=== PATIENT | female | born 1985 | race Caucasian/White ===

== ENCOUNTER → 2018-02-02 09:44 | Outpatient (CLI) | payer OTHER, SELFPAY ==
[2018-02-02 12:20] LABS: Absolute Lymphocyte Count 1.54 X10^3/ul (0.83-4.51); Absolute Neutrophil Count 2.7 X10^3/uL (2.0-7.7); Basophil# 0.02 X10^3/uL; Basophil% 0.4 % (0-1); Eosinophil# 0.08 X10^3/uL; Eosinophils% 1.7 % (0-5); Hematocrit 38.1 % (37-47); Hemoglobin 12.8 g/dl (12.0-15.0); Lymphocyte # 1.54 X10^3/ul (4.0); Lymphocyte % 33.6 % (19-41); Mean Corp Hgb Conc 33.6 g/gl (32-36); Mean Corpuscular Hgb 31.1 pg (27.0-32.0); Mean Corpuscular Volume 92.5 fL (81-99); Monocyte# 0.27 X10^3/uL; Monocyte% 5.9 % (0-10); Neutrophil # 2.68 X10^3/uL (2.7-7.7); Neutrophil % 58.4 % (47-70); Platelet Count 208 K/mm3 (150-450); RBC Distribution Width CV 12.3 % (11.6-14.6); Red Blood Count 4.12 M/mm3 (4.2-5.4); White Blood Count 4.6 K/mm3 (4.4-11.0)
[2018-02-02 12:39] LABS: AST(SGOT) 16 U/L (15-37); Alanine Aminotransfer ALT/SGPT 25 U/L (13-56); Albumin, Serum 4.2 g/dL (3.2-5.0); Alkaline Phosphatase 74 U/L (45-117); Anion Gap 10 (5-15); BUN 11 mg/dL (7-18); BUN/Creat Ratio 14.4 RATIO (10-20); Calcium,Total 9.4 mg/dL (8.5-10.1); Chloride 105 mmol/L (98-107); Creatinine, Serum 0.76 mg/dL (0.55-1.02); EST Glomerular Filtration Rate 95 mL/min (>60); Est Glom Filt Rate - Afr Amer 114 mL/min (>60); Globulin 4.1 g/dL (2.2-4.2); Glucose 77 mg/dL (74-106); Potassium 3.9 mmol/L (3.5-5.1); Protein, Total 8.3 g/dL (6.4-8.2); Rheumatoid Factor < 10.0 IU/mL (<15); Sodium Level 141 mmol/L (136-145)
[2018-02-02 12:42] LABS: POSITIVE COUNT NO; POSITIVE DIFFERENTIAL NO; POSITIVE MORPHOLOGY NO
[2018-02-04 10:00] LABS: CCP IgG Antibodies 5 units (0-19); HEPATITIS B SURFACE AG Negative (Negative); Hep B Surface Antibodies Non Reactive (.); Hep C Antibodies <0.1 s/co ratio (0.0-0.9)
== END ==
PROVIDERS: Family Provider Family Medicine; PCP Family Medicine; Referring Provider Internal Medicine Rheumatology; Visit Provider Internal Medicine Rheumatology
DX: M06.4 Inflammatory polyarthropathy (principal); E03.9 Hypothyroidism, unspecified; I83.93 Asymptomatic varicose veins of bilateral lower extremities
CPT/HCPCS: 36415; 80053; 85025; 86200; 86431; 86706; 86803; 87340

== ENCOUNTER 2022-05-08 09:48 | Inpatient (IN) | payer SELFPAY, OTHER ==
[2022-05-08] VITALS (26 sets, daily range): BP systolic 87–131; BP diastolic 54–81; PULSE 70–102; TEMP 36.4–37.6; O2SAT 98–100; BMI 27.2
[2022-05-08 09:42] LABS: ROM Internal Control Test YES-OK TO RESULT pt. (Internal QC)
[2022-05-08 09:44] LABS: ROM Patient Test POSITIVE (Negative)
[2022-05-08] MEDS: Lactated Ringers 1,000 ML 50 ML IV (11:10)
[2022-05-08 11:24] LABS: Absolute Lymphocyte Count 1.57 X10^3/uL (0.83-4.51); Absolute Neutrophil Count 7.3 X10^3/uL (2.0-7.7); Basophil# 0.02 X10^3/uL; Basophil% 0.2 % (0-1); Eosinophil# 0.03 X10^3/uL; Eosinophils% 0.3 % (0-5); Hematocrit 35.3 % (37-47); Hemoglobin 11.9 g/dL (12.0-15.0); Lymphocyte # 1.57 X10^3/ul (0.83-4.51); Lymphocyte % 16.9 % (19-41); Mean Corp Hgb Conc 33.7 g/dL (32-36); Mean Corpuscular Hgb 31.9 pg (27.0-32.0); Mean Corpuscular Volume 94.6 fL (81-99); Mean Platelet Vol. 9.2 fl (6.2-12.0); Monocyte# 0.34 X10^3/uL; Monocyte% 3.7 % (0-10); NRBC Flagged by Analyzer 0 % (0-5); Neutrophil % 78.5 % (47-70); Platelet Count 164 K/mm3 (150-450); RBC Distribution Width CV 13.2 % (11.6-14.6); RBC Distribution Width SD 45.4 fl (35.1-43.9); Red Blood Count 3.73 M/mm3 (4.2-5.4); White Blood Count 9.3 K/mm3 (4.4-11.0)
[2022-05-08] MEDS: Oxytocin 15 Units/NS 250ml 15 UNITS/250 ML IV.SOLN 2 UNITS IV (11:54)
[2022-05-08 12:03] LABS: Group B Strep DNA By PCR Negative (Negative); Internal Control PASS; Probe Check PASS; Specimen Processing Control PASS
[2022-05-08 12:04] LABS: Bacteria 0 SEEN /hpf (None Seen); Mucous, Urine 0 SEEN /hpf (<or=2+); Red Blood Cells-Urine 0 SEEN /hpf (0-5); Squamous Epithelial Cells - UA 0 SEEN /hpf (5-10); White Blood Cells 0 SEEN /hpf (0-5)
[2022-05-08 12:19] LABS: Rubella IgG Reactive (Nonreactive); Syphilis Antibodies Non-reactive
[2022-05-08 12:25] LABS: Amphetamine Urine VISTA NEGATIVE (<1000 ng/mL); Barbiturate Urine VISTA NEGATIVE (< 200 ng/mL); Benzodiazepine Urine VISTA NEGATIVE (< 200 ng/mL); Cocaine Urine VISTA NEGATIVE (< 300 ng/mL); Ecstacy Urine VISTA NEGATIVE (< 500 ng/mL); Methadone Urine VISTA NEGATIVE (< 300 ng/mL); PCP Urine VISTA NEGATIVE (< 25 ng/mL); THC Urine VISTA NEGATIVE (< 50 ng/mL); Vista UDS pH Range 6
[2022-05-08 12:26] LABS: Color, Urine Straw (Yellow); Glucose, Dipstick Normal (Normal); Ketone-Dipstick Negative (Negative); Leukocyte Esterase-Dipstick Negative /ul (Negative); Nitrite-Dipstick Negative (Negative); Occult Blood-Urine Negative /ul (Negative); Protein-Dipstick Negative (Negative); Urine Bilirubin Dipstick Negative (Negative); Urine Clarity Clear (Clear); Urine Urobilinogen Normal (Normal); Urine pH 6.5 (5.0 - 8.0)
[2022-05-08 12:38] LABS: HIV - WCH Non-Reactive (Nonreactive); Hepatitis B Surface Antigen Non-Reactive (Nonreactive); Hepatitis C Antibody Non-Reactive (Nonreactive); Syphilis Antibodies Non-reactive
--- NOTE | 2022-05-08 13:47 | HP.PCM.OB_ITS ---
HPI - General General Date of Admission: 05/08/22 HPI Narrative TUAN BURGESS, is a 36 F 4 para 2, 0, 1, 2 who presents after prolonged rupture of membranes, Patient planned to deliver at home with matchbook assembler, but SROM occurred and they have been unable to get labor to start at home. Patient is 41 weeks by dates assigned by the matchbook assembler which was somewhat inconsistent with the midtrimester ultrasound which has had do somewhat earlier. has been uneventful apart from respiratory illness in January. There has been no vaginal bleeding. Fluid has been clear. movements have continued. [facility] Medical History (Updated 05/08/22 @ 13:[address] Janelle Todd MD) Autoimmune disease Breast disorder Headache Superficial varicosities Thyroid disorder Home Medications preg 05/08/22 [History Last Taken 05/07/22] Vitamin 05/08/22 [History Last Taken Unknown] aspirin 81 mg tablet,delayed release 81 mg PO DAILY superficial clots 05/08/22 [History Last Taken 05/05/22] levothyroxine 100 mcg tablet mcg hypothyroidism 05/08/22 [History Last Taken 05/08/22 06:00] Allergy/AdvReac Type Severity Reaction Status Date / Time No Known Allergies Allergy Verified 05/08/22 10:43 Surgical History (Updated 05/08/22 @ 11:37 by Tomeka Gipson) History of surgery Social History Smoking Status: Never smoker History Elective abortions Hx Para 2 Spontaneous abortions Hx # Term Pregnancies Ectopic pregnancies Hx # Pregnancies Multiple births # of living children Addt'l History: Started care at weeks 1GTT GBBS weight gain Other pertinent diagnoses NST FHR Rate Baby A Baseline: 140 Variability:: Moderate Accelerations:: 15 x 15 Decelerations:: None NST Reactive:: Yes FHR Category:: Category I ROS ROS Narrative All negative Vital Signs Vital Signs Vital Signs: 05/08/22 09:20 05/08/22 09:20 05/08/22 09:20 Temperature Temperature Source Pulse Rate 85 Blood Pressure 106/72 BP Systolic 106 BP Diastolic 72 Pulse Ox 99 05/08/22 09:20 05/08/22 11:42 05/08/22 11:42 Temperature Temperature Source Pulse Rate 97 Blood Pressure 111/71 BP Systolic 111 BP Diastolic 71 Pulse Ox 100 05/08/22 11:42 05/08/22 11:41 05/08/22 11:41 Temperature 99.7 F H Temperature Source Temporal Pulse Rate 98 Blood Pressure BP Systolic BP Diastolic Pulse Ox 05/08/22 11:41 05/08/22 11:41 05/08/22 13:06 Temperature 99.5 F H Temperature Source Pulse Rate Blood Pressure 87/54 L BP Systolic 87 BP Diastolic 54 Pulse Ox 98 05/08/22 13:06 05/08/22 13:06 05/08/22 13:07 Temperature Temperature Source Oral Pulse Rate 88 89 Blood Pressure BP Systolic BP Diastolic Pulse Ox 05/08/22 13:07 05/08/22 13:06 05/08/22 13:40 Temperature 98.8 F Temperature Source Pulse Rate Blood Pressure 94/58 L BP Systolic 94 BP Diastolic 58 Pulse Ox 98 05/08/22 13:40 Temperature Temperature Source Pulse Rate 83 Blood Pressure BP Systolic BP Diastolic Pulse Ox Weight Weight: 179 lb Body Mass Index (BMI) 27.2 Physical Exam Narrative Young female in Const alert, oriented x3, no apparent distress and well nourished General Appearance: cooperative HEENT normocephalic Eyes PERRL and EOMs intact bilaterally Neck full ROM Chest Breast/Axilla Inspection: other Other Details: deferred Resp normal respiratory effort and clear to auscultation bilaterally Cardio regular rate, regular rhythm and no murmurs GI soft to palpation and non-tender GI Narrative: Gravid no CVA tenderness Narrative: Vulva and vagina normal Cervix 2 cm dilated per RN, 80% effaced , position , 0 station, Neuro oriented x3 and no sensory deficits noted Psych mental status grossly normal Labs Labs Labs: Blood Type A POSITIVE Antibody Screen NEGATIVE Hct 35.3 % (37-47) L Hgb 11.9 g/dL (12.0-15.0) L Syphilis Total Ab Non-reactive Rubella IgG Antibody Reactive (Nonreactive) Hep Bs Antigen Non-Reactive (Nonreactive) HIV 1&2 Antibody Non-Reactive (Nonreactive) Group B Strep DNA Negative (Negative) Assessment & Plan (1) Rupture of membranes with clear amniotic fluid: COMMENT: Prolonged. Patient presented at about 36 hours of ruptured membranes (2) Term : COMMENT: No onset of labor. Patient is being admitted for Pitocin induction of labor. Group B beta strep is negative. She will be monitored closely for any evidence of chorioamnionitis and managed appropriately. Anticipate spontaneous vaginal delivery. Clinical estimated weight is 8 pounds.
[2022-05-08 15:01] LABS: Chlamydia Trachomatis by PCR Negative (Negative); Neisserai gonorrhoeae by PCR Negative (Negative); Probe Check PASS; Sample Adequacy Control PASS; Specimen Processing Control PASS
--- NOTE | 2022-05-08 17:45 | PCM.PN.BLA ---
Progress Note Patient is currently receiving 8 milliunits/min of Pitocin and jerrod every 2 to 3 minutes. Per RN her contractions palpate strong. We have not repeated a vaginal exam. heart rate is in the 140s with good variability. No periodic changes are noted. A vaginal exam will be performed when she indicates that she is feeling some pressure.
[2022-05-08] MEDS: Lactated Ringers 1,000 ML 200 ML IV (18:46)
[2022-05-08] MEDS: Oxytocin 15 Units/NS 250ml 15 UNITS/250 ML IV.SOLN 83 UNITS IV (21:20)
--- NOTE | 2022-05-08 21:29 | PCM.NY.DEL ---
Delivery Attendance Service Date: 05/08/22 Service Time: 21:00 Physical Exam Apgars/Vital Signs/Weight: Weight: 179 lb General Weight: 179 lb Delivery Course Patient brought in by a end finder twisting department for over 30 hours of ruptured membranes at 4 PM fluid without onset of labor at 40 weeks and 4 days. The patient received Pitocin induction. There was no evidence of chorioamnionitis and she delivered after 48 hours and male with scores of 8 and 9. Delivery was uncomplicated with blood loss 300 mL and a first-degree perineal tear which was repaired. Amniotic fluid was clear and there was a three-vessel cord which was loosely wrapped around the 's neck. Patient received nitrous oxide for facemask and third stage was managed actively without complications. The infant's weight is in the labor and delivery record book.
--- NOTE | 2022-05-08 21:33 | EX.PCM.OBRPT ---
Assessment & Plan (1) Term : COMMENT: No onset of labor. Patient is being admitted for Pitocin induction of labor. Group B beta strep is negative. She will be monitored closely for any evidence of chorioamnionitis and managed appropriately. Anticipate spontaneous vaginal delivery. Clinical estimated weight is 8 pounds. (2) Rupture of membranes with clear amniotic fluid: COMMENT: Prolonged. 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 Type of Induction: Pitocin Medical Reason for Induction: - (prolonged Rupture of membranes ) Operative Information Date of Procedure: 05/08/22 Pre-Operative Diagnosis: 41 wk , Pitocin induction of labor Post-Operative Diagnosis: Same, s/p Surgery / Procedure Performed: Spontaneous Vaginal Delivery Type of Anesthesia: None Special Medications: Nitrous oxide face mask used Estimated Blood Loss: 300ml Time of Delivery: 21:07 Findings Presentation: Vertex Time of Membrane Rupture: 4:00 pm on 05/06/22 Amniotic Fluid Description: Clear Placental Delivery Description: Expressed Placenta Disposition: [facility] Cord Vessel Description: 3 Vessels Cord Entanglement: Around neck x 1, loose Infant A Gender: Male (1 minute): 8 (5 minute): 9 Delayed Cord Clamping: Yes Post Vaginal Delivery Medications Given After Delivery: IV Pitocin Laceration: Midline and 1st degree Complication Complications: None Admit VTE Documentation VTE Present on Admission: No VTE Mechan Device Prophylaxis: None VTE Pharm Prophylaxis Ordered: No Reason Prophylaxis Not Ordered: Treatment Not Indicated
[2022-05-08] MEDS: Ibuprofen 600 MG Tablet PO (22:46)
[2022-05-09] VITALS (8 sets, daily range): BP systolic 97–116; BP diastolic 63–75; PULSE 72–83; RESP 14–18; TEMP 36.4–36.8; O2SAT 98–100
[2022-05-09] MEDS: Acetaminophen 500 MG Tablet 1000 MG PO ×3 (04:14→20:28)
[2022-05-09] MEDS: Levothyroxine 100 MCG Tablet PO (06:09)
[2022-05-09 06:28] LABS: Hematocrit 35.2 % (37-47); Hemoglobin 11.9 g/dL (12.0-15.0); Mean Corp Hgb Conc 33.8 g/dL (32-36); Mean Corpuscular Hgb 32.2 pg (27.0-32.0); Mean Corpuscular Volume 95.4 fL (81-99); Platelet Count 145 K/mm3 (150-450); RBC Distribution Width CV 13.1 % (11.6-14.6); RBC Distribution Width SD 45.1 fl (35.1-43.9); Red Blood Count 3.69 M/mm3 (4.2-5.4); White Blood Count 15.2 K/mm3 (4.4-11.0)
[2022-05-09 07:16] LABS: Thyroid Stim Hormone (TSH) 2.22 uIU/mL (0.358-3.74)
[2022-05-09 07:55] LABS: Hemoglobin A1c 5.2 % (3.8-5.6)
[2022-05-09] MEDS: Senna/Docusate Sodium 1 Tablet PO (08:04)
--- NOTE | 2022-05-09 08:34 | PN.OBGYN_ITS ---
Subjective Subjective Good pain control. Voiding without difficulty. Tolerating regular diet Lochia small. baby nursing well. Objective Data Objective Data Looks well and moving easily. Has remained afebrile. Vital Signs: Vital Signs Temp Pulse Resp BP Pulse Ox O2 Del Method 97.7 F L 72 16 97/68 98 Room Air 05/09/22 07:50 05/09/22 07:50 05/09/22 07:50 05/09/22 07:50 05/09/22 04:17 05/09/22 07:50 Oxygen Delivery Method Room Air Weight: 179 lb Body Mass Index (BMI) 27.2 Intake & Output: Intake and Output for Last 24 Hours 05/07/22 05/08/22 05/09/22 23:59 23:59 23:59 Intake Total 1723.36 / 1723.36 250 / 250 Output Total 250 / 250 Balance 1473.36 / 1473.36 250 / 250 Lab / Micro Data Result Diagrams: 05/09/22 06:20 Labs: Laboratory Results - last 24 hr 05/08/22 09:30: Vag Amniotic Fld Detect POSITIVE H 05/08/22 09:30: Group B Strep DNA Negative, Specimen Comment Not Reportable 05/08/22 11:10: WBC 9.3, RBC 3.73 L, Hgb 11.9 L, Hct 35.3 L, MCV 94.6, MCH 31.9, MCHC 33.7, RDW Std Deviation 45.4 H, RDW Coeff of [place] 13.2, Plt Count 164, MPV 9.2, Immature Gran % (Auto) 0.400, Neut % (Auto) 78.5 H, Lymph % (Auto) 16.9 L, [place] % (Auto) 3.7, Eos % (Auto) 0.3, Baso % (Auto) 0.2, Absolute Neuts (auto) 7.3, Absolute Lymphs (auto) 1.57, Nucleated RBC % 0 05/08/22 11:10: Syphilis Total Ab Non-reactive, Rubella IgG Antibody Reactive 05/08/22 11:10: Blood Type A POSITIVE, Antibody Screen NEGATIVE 05/08/22 11:10: Syphilis Total Ab Non-reactive, Hep Bs Antigen Non-Reactive, Hepatitis C Antibody Non-Reactive, HIV 1&2 Antibody Non-Reactive 05/08/22 11:55: Urine Color Straw, Urine Clarity Clear, Urine pH 6.5, Ur Specific [place] 1.010, Urine Protein Negative, Urine Glucose (UA) Normal, Urine Ketones Negative, Urine Occult Blood Negative, Urine Nitrite Negative, Urine Bilirubin Negative, Urine Urobilinogen Normal, Ur Leukocyte Esterase Negative, Urine RBC 0 SEEN, Urine WBC 0 SEEN, Ur Squamous Epith Cells 0 SEEN, Urine Bact eria 0 SEEN, Urine Mucus 0 SEEN 05/08/22 11:55: Urine Opiates Screen NEGATIVE, Urine Methadone Screen NEGATIVE, Ur Barbiturates Screen NEGATIVE, Ur Phencyclidine Scrn NEGATIVE, Ur Amphetamines Screen NEGATIVE, MDMA (Ecstasy) Screen NEGATIVE, U Benzodiazepines Scrn NEGATIVE, Urine Cocaine Screen NEGATIVE, U Cannabinoids Screen NEGATIVE, Ur Drug Screen Comment 05/08/22 12:00: Chlam trachomat DNA PCR Negative, N.gonorrhoeae DNA (PCR) Negative 05/09/22 06:20: WBC 15.2 H, RBC 3.69 L, Hgb 11.9 L, Hct 35.2 L, MCV 95.4, MCH 32 .2 H, MCHC 33.8, RDW Std Deviation 45.1 H, RDW Coeff of [place] 13.1, Plt Count 145 L, MPV 9.0 05/09/22 06:20: TSH 2.22 05/09/22 06:20: Hemoglobin A1c 5.2 Physical Exam Const alert, oriented x3 and no apparent distress General Appearance: cooperative HEENT normocephalic Eyes PERRL and EOMs intact bilaterally Resp normal respiratory effort and clear to auscultation bilaterally Cardio regular rate, regular rhythm and no murmurs GI non-tender GI Narrative: rounded.soft uterus firm at u-2 Back/Spine Back/Spine Narrative: No CVAT Extremity no calf tenderness and no pedal edema Neuro oriented x3 and no sensory deficits noted Psych mental status grossly normal Psych Narrative: very cheerful Assessment & Plan (1) Term : COMMENT: post . Macrosomic infant. Discussed TSH could have contributed to macrosomia, however this is normal this am, so unlikely. Discussed presenting after 24 hours in case of ROM due to risk of infection. PLAN: Home today if baby OK to leave (2) Autoimmune disease: COMMENT: RA (3) Thyroid disorder: (4) Status post normal vaginal delivery:
== END 2022-05-09 22:15 | disposition home or self-care (01) | DRG 807 ==
LOC: WPOUT 09:49 → WP 09:49
PROVIDERS: Admitting Provider Obstetrics & Gynecology Gynecology; PCP Family Medicine; Visit Provider Obstetrics & Gynecology Gynecology
DX: O42.12 Full-term premature rupture of membranes, onset of labor more than 24 hours following rupture (principal); Z37.0 Single live birth; E07.9 Disorder of thyroid, unspecified; M06.9 Rheumatoid arthritis, unspecified; O99.892 Other specified diseases and conditions complicating childbirth; O48.0 Post-term pregnancy; O99.284 Endocrine, nutritional and metabolic diseases complicating childbirth; O69.81X0 Labor and delivery complicated by cord around neck, without compression, not applicable or unspecified; O36.63X0 Maternal care for excessive fetal growth, third trimester, not applicable or unspecified; O70.0 First degree perineal laceration during delivery; Z79.82 Long term (current) use of aspirin; Z79.899 Other long term (current) drug therapy; Z3A.41 41 weeks gestation of pregnancy
CPT/HCPCS: 59025; 59050; 80307; 81001; 83036; 84112; 84443; 85025; 85027; 86703; 86762; 86780; 86803; 86850; 86900; 86901; 87081; 87340; 87491; 87591; 87653; 99221; J7120; G0378